=== PATIENT | male | born 1980 | race Caucasian/White ===

== ENCOUNTER → 2018-09-19 | Outpatient (CLI) | payer BC ==
[~2018-09-19] MED LIST: CLONAZEPAM 0.50.5 M1 PO; HYDROCODONE-APA1 TA1 PO; NORCO 5-325 TA1 EACH PO
== END ==
LOC: M.MRI 06:59
DX: M50.222 Other cervical disc displacement at C5-C6 level (principal); M48.02 Spinal stenosis, cervical region; Z68.29 Body mass index [BMI] 29.0-29.9, adult

== ENCOUNTER 2019-01-27 00:43 | Emergency (ER) | payer BC ==
[~2019-01-27] VITALS: Ht 177.8 cm; Wt 93.0 kg
[~2019-01-27 00:43] MED LIST changes: -HYDROCODONE-APA1 TA1 PO; +NORCO 7.5-3251 EACH PO
[2019-01-27 02:58] VITALS: BP 128/81
== END 2019-01-27 02:58 | disposition home or self-care (01) ==
LOC: M.ERS 00:43
DX: S93.692A Other sprain of left foot, initial encounter (principal); F17.210 Nicotine dependence, cigarettes, uncomplicated; X50.1XXA Overexertion from prolonged static or awkward postures, initial encounter; Y92.89 Other specified places as the place of occurrence of the external cause; Y93.89 Activity, other specified; Y99.8 Other external cause status